=== PATIENT | male | born 1980 | race Caucasian/White ===

== ENCOUNTER 2023-06-09 18:25 | Emergency (ER) | payer OTHER ==
[~2023-06-09] VITALS: Ht 182.9 cm; Wt 68.0 kg
[2023-06-09 18:28] VITALS: BP 130/84; PULSE 116; RESP 22; TEMP 97.4; O2SAT 96
== END 2023-06-09 19:48 | disposition home or self-care (01) ==
LOC: MED 18:25
DX: R56.9 Unspecified convulsions (principal); Z79.899 Other long term (current) drug therapy
CPT/HCPCS: 99283